=== PATIENT | female | born 1975 | race Caucasian/White ===

== ENCOUNTER → 2018-10-13 16:07 | Outpatient (CLI) | payer OTHER, SELFPAY ==
--- NOTE | 2018-10-13 | DI.CT.S_ITS ---
PROCEDURE: CT ABDOMEN PELVIS WO/W CON INDICATIONS: LEFT FLANK PAIN TECHNIQUE: Optional 5 mm thick noncontrast images acquired from the diaphragm to the symphysis pubis. After the administration of intravenous contrast, 5 mm thick images acquired from the diaphragm to the symphysis pubis after a 10-minute delay. 2 mm thick coronal and sagittal reformats were then performed of the kidneys and ureters. For radiation dose reduction, the following was used: automated exposure control, adjustment of mA and/or kV according to patient size. COMPARISON: None. FINDINGS: Image quality: Excellent. Lung bases: Lung bases are clear. Heart size is normal. Bilateral breast implants partially visualized, no evidence of implant rupture. Urinary system: Both kidneys are normal in size, without hydronephrosis or nephrolithiasis on pre-contrast images. No perinephric fat stranding. There is normal bilateral renal enhancement. Renal calyces appear normal in morphology when filled with contrast. Opacified portions of both ureters demonstrate normal caliber. Bladder wall thickness is normal. No calcified bladder stones. Other solid organs: Liver is normal in size and enhancement. Gallbladder appears normal. Biliary system is non dilated. Pancreas enhances normally. Spleen is normal in size and enhancement. No adrenal nodules. Peritoneum and bowel: Bowel loops demonstrate normal wall thickness and caliber. No free fluid or air. Nodes and vessels: No retroperitoneal or mesenteric adenopathy by size criteria. Aorta and inferior vena cava are normal in size. Abdominal wall: No ventral hernias. Pelvis: No pathologic free pelvic fluid. No inguinal hernias or adenopathy. The uterus is anteverted and contains a centrally positioned IUD. No left-sided adnexal pathology is seen. There is a water density 3.7 cm simple appearing cyst adjacent to a smaller cyst at the right adnexa. Bones: No suspicious bony lesions. No vertebral body compression fractures. IMPRESSION: A source of left-sided flank pain is not seen. No urinary tract stone or evidence of pyelonephritis or underlying neoplasm is found. Incidental note is made of 2 water density apparent cysts at the right adnexa, the largest measuring up to 3.7 cm in maximal axial dimension. Dictated by: Reinaldo Fritz M.D. on 10/14/2018 at 11:08 Approved by: Reinaldo Fritz M.D. on 10/14/2018 at 11:10
== END ==
PROVIDERS: Family Provider Family Medicine; PCP Family Medicine; Visit Provider Family Medicine
DX: R10.9 Unspecified abdominal pain (principal); N94.9 Unspecified condition associated with female genital organs and menstrual cycle
CPT/HCPCS: 74178; Q9967

== ENCOUNTER → 2019-04-10 10:39 | Outpatient (CLI) | payer BC, SELFPAY ==
--- NOTE | 2019-04-10 10:51 | DI.CT.S_ITS ---
PROCEDURE: CT SINUS SCREEN WO CON INDICATIONS: Chronic maxillary sinusitis TECHNIQUE: Noncontrast 3.0 mm axial images acquired from the frontal sinuses to the mid-sella, with coronal and sagittal reformats. For radiation dose reduction, the following was used: automated exposure control, adjustment of mA and/or kV according to patient size. COMPARISON: None. FINDINGS: Image quality: Excellent. Postsurgical changes compatible prior functional endoscopic sinus surgery noted. No mucosal thickening identified. No air-fluid levels are identified. No leidy bullosa or paradoxical turbinates. The nasal septum is midline. No osseous thickening, osseous remodeling or osseous erosive changes. IMPRESSION: No mucosal thickening or air-fluid levels. Dictated by: Sada Perdomo MD, PhD on 04/10/2019 at 11:38 Approved by: Sada Perdomo MD, PhD on 04/10/2019 at 11:40
== END ==
PROVIDERS: PCP Family Medicine; Visit Provider Family Medicine
DX: J32.0 Chronic maxillary sinusitis (principal)
CPT/HCPCS: 70486

== ENCOUNTER → 2019-09-04 11:19 | Outpatient (ROUT) | payer BC, SELFPAY ==
[2019-09-04 11:29] LABS: Influenza A and B by PCR Rapid Negative (Negative)
== END ==
PROVIDERS: PCP Family Medicine; Visit Provider Internal Medicine
DX: R53.81 Other malaise (principal); R52 Pain, unspecified; R50.9 Fever, unspecified
CPT/HCPCS: 87400; 87502

== ENCOUNTER → 2020-01-31 15:25 | Outpatient (CLI) | payer BC, SELFPAY ==
--- NOTE | 2020-01-31 15:34 | DI.RAD.S_ITS ---
PROCEDURE: XR CERVICAL SPINE 2V OR 3V INDICATIONS: NECK PAIN TECHNIQUE: 3 view(s) of the cervical spine were acquired. COMPARISON: None. FINDINGS: Bones: No fractures or dislocations to the T1 level. The lateral masses of C1 appear intact on the odontoid view. No suspicious bony lesions. Soft tissues: No prevertebral soft tissue swelling. IMPRESSION: Minimal degenerative disc disease along the cervical spine, as indicated by C5-C6 mild disc height reduction. No subluxation or definite spinal/foraminal stenosis is seen. Dictated by: Reinaldo Fritz M.D. on 01/31/2020 at 16:20 Approved by: Reinaldo Fritz M.D. on 01/31/2020 at 16:21
== END ==
PROVIDERS: PCP Family Medicine; Referring Provider Family Medicine; Visit Provider Family Medicine
DX: M54.2 Cervicalgia (principal)
CPT/HCPCS: 72040

== ENCOUNTER → 2021-08-04 11:23 | Outpatient (ROUT) | payer BC, SELFPAY ==
[2021-08-04 13:02] LABS: COVID19 -Nasal RAPID Negative (Negative)
== END ==
PROVIDERS: PCP Family Medicine; Visit Provider Nurse Practitioner Family
DX: Z20.822 Contact with and (suspected) exposure to COVID-19 (principal)
CPT/HCPCS: 87635

== ENCOUNTER 2021-11-07 09:41 | Emergency (ER) | payer BC, SELFPAY ==
[2021-11-07] VITALS (18 sets, daily range): BP systolic 114–150; BP diastolic 71–81; PULSE 65–91; RESP 12–31; TEMP 36.7; O2SAT 98–100; BMI 28.0
--- NOTE | 2021-11-07 10:15 | PC.NURSE ---
Patient was flying one week ago about 45min into flight became, hot, sweating, nauseated, ringing in years. Spouse reports she was out for couple of minutes. Had ssimilar episode on flight home two days ago, oxygen was administered immediatly and patient symptoms resolved. Patient had felt normal all week in between flights other than some frequent heart [place] feeling off yesterday some light headed, indigestion. Today woke feeling worse with neck pain/tension with headache. Patient has history of migraines and would normal attribute symptoms to that but in light of the syncope and near syncope on flight patient comes in to ER.
[2021-11-07 10:18] LABS: Add Manual Diff / Slide Review NO; Basophils Absolute Auto 100 /uL (0-100); Eosinophils Absolute Auto 100 /uL (0-450); Eosinophils Percent Auto 2.1 % (2-4); Hematocrit 39.4 % (36-46); Hemoglobin 13.3 g/dL (12.0-16.0); Lymphocytes Absolute Auto 2200 /uL (1100-4500); Lymphocytes Percent Auto 39.3 % (25-40); Mean Corpuscular HGB Conc 33.9 % (30-36); Mean Corpuscular Hemoglobin 32.1 PG (26-34); Mean Corpuscular Volume 94.7 fL (80-100); Monocytes Absolute Auto 500 /uL (0-900); Monocytes Percent Auto 8.8 % (3-14); Neutrophils Absolute Auto 2700 /uL (1500-7000); Neutrophils Percent Auto 48.8 % (50-75); Platelet Count 248 X10^3/uL (150-400); Red Blood Cell Count 4.16 X10^6/uL (4.0-5.2); Red Cell Distribution Width 12.9 % (11.6-14.8); White Blood Cell Count 5.5 X10^3/uL (4.5-11.0)
--- NOTE | 2021-11-07 10:29 | DI.CT.S_ITS ---
PROCEDURE: CT HEAD/BRAIN WO CON INDICATIONS: Syncope TECHNIQUE: Noncontrast 4.5 mm thick angled axial sections acquired from the foramen magnum to the vertex, with coronal and sagittal reformats. For radiation dose reduction, the following was used: automated exposure control, adjustment of mA and/or kV according to patient size. COMPARISON: [facility], CT, HEAD WITHOUT CONTRAST, 08/23/2008, 11:09. FINDINGS: Image quality: Excellent. CSF spaces: Basal cisterns are patent. No extra-axial fluid collections. Ventricles are normal in size and shape. Brain: No midline shift. No intracranial masses or hemorrhage. Khalil-white matter interface is normal. Skull and face: Calvarium and visualized facial bones are intact, without suspicious lesions. Sinuses: Visualized sinuses and mastoids are clear. IMPRESSION: Unremarkable noncontrast head CT, without a cause of syncope identified. Dictated by: Sarmad Zamora M.D. on 11/07/2021 at 9:57 Approved by: Sarmad Zamora M.D. on 11/07/2021 at 9:58
--- NOTE | 2021-11-07 10:32 | ED_ITS ---
HPI - Syncope General Chief Complaint: Syncope Stated Complaint: LIGHT HEADED/SYNCOPE ON PLANE/LOW BLOOD PRESSURE Time Seen by Provider: 11/07/21 10:01 Source: patient and family Mode of arrival: Ambulatory Limitations: no limitations History of Present Illness HPI narrative: 8 days ago the patient was on a flight from this area to [place]. She had a 4 minute episode of syncope while aboard the plane. Her described her eyes rolling back. He could not palpate a pulse. She became pale and diaphoretic. She spontaneously recovered, and was asymptomatic for the duration the flight. Once in [place] they took a couple connector flights with no symptoms. On the return flight 2 days ago, she developed near-syncope, she was given oxygen and symptoms resolved. She has been asymptomatic since that e pisode in flight. She does not recall palpitations, chest pain or dyspnea. She had no visual changes, change in speech, or numbness or weakness to the face or extremities. She denies recent illness. She has no URI symptoms . She has no fever chills. She has no current neurologic, cardiovascular, or GI symptoms. She denies . She has no prior history of syncope. This morning, before deciding to come to the ER, she was not feeling well. Her blood pressure was 90/70 at home. She is normotensive upon arrival here. Related Data Home Medications Medication Instructions Recorded Confirmed sumatriptan succinate 50 mg tablet 50 mg PO PRN #0 05/30/12 10/31/18 (Imitrex) levonorgestrel 20 mcg/24 hours (7 52 mg IU #0 09/12/12 10/31/18 yrs) 52 mg intrauterine device (Mirena) Previous Rx's Medication Instructions Recorded metoprolol tartrate 25 mg tablet 25 mg PO DAILY #30 tab 11/07/21 Allergies Allergy/AdvReac Type Severity Reaction Status Date / Time Sulfa (Sulfonamide Allergy Intermediate HIVES Unverified 10/31/18 10:08 Antibiotics) minocycline AdvReac Mild VERTIGO, Unverified 10/31/18 10:08 NAUSEA Review of Systems Constitutional Constitutional: Reports as per HPI, Denies fatigue, Denies fever(s) and Reports headache(s) (Cervical headache.) Eyes Eyes: Denies blind spots, Denies blurry vision and Denies loss of vision ENT Ears, Nose, Mouth, and Throat: Reports headache(s) (Cervical headache.), Reports neck pain, Denies sinus pain and Denies sore throat Cardiovascular Cardiovascular: Denies chest pain, Denies chest pain with activity, Reports syncope, Denies rapid heart rate and Denies dyspnea Respiratory Respiratory: Denies cough and Denies dyspnea Gastrointestinal Gastrointestinal: Denies abdominal pain and Denies nausea Musculoskeletal Musculoskeletal: Denies back pain, Denies muscle weakness, Denies myalgias, Reports neck pain, Denies numbness, Denies stiffness and Denies tingling Integumentary/Breasts Skin/Breast: Denies rash Neurologic Neurologic: Denies confusion, Reports syncope, Reports headache(s) (Cervical he adache.), Denies loss of vision, Denies numbness and Denies tingling Psychiatric Psychiatric: Denies confusion and Denies depression Endocrine Endocrine: Denies fatigue Hematologic/Lymphatic On Anticoagulants: No Patient History Medical History (Updated 11/07/21 @ 15:49 by Aroldo Garnett MD) Healthy adult Surgical History Anesthesia History of breast augmentation History of endoscopic sinus surgery History of knee surgery History of repair of ACL Status post bunionectomy Social History Smoking Status: Never smoker Smoking Status: Never smoker alcohol intake frequency: 0-2 drinks per day Substance Use Type: does not use Exam Initial Vital Signs Initial Vital Signs: Vital Signs Temperature 98.1 F 11/07/21 09:45 Pulse Rate 78 11/07/21 09:45 Respiratory Rate 18 11/07/21 09:45 Blood Pressure 150/71 H 11/07/21 09:45 Pulse Oximetry 99 11/07/21 09:45 Const General: cooperative, healthy appearing and comfortable [facility] Head: normocephalic and atraumatic Mouth: oral mucosae normal Eyes Pupils: PERRL EOM: EOM intact bilaterally Neck Neck: normal visual inspection and No JVD Thyroid: thyroid normal Resp Auscultation: clear to auscultation bilaterally Cardio Rate: regular rate Rhythm: regular rhythm Heart Sounds: S1 normal, S2 normal, no click, no gallops and no murmurs GI Inspection: normal to inspection Palpation: soft and No guarding Auscultation: normal bowel sounds Back/Spine/Pelvis Back: normal to inspection Skin General: no rashes or lesions noted Neuro General: patient alert, patient awake, patient oriented x3 and no focal motor deficits Extrem General: normal to inspection, no pedal edema and no calf tenderness Psych Mental Status: mental status grossly normal Course Course Course Narrative: During his stay in the ER she developed palpitations. She did not feel near- syncope. She had no chest pain, dyspnea or diaphoresis. Cardiac monitoring captured a brief run of AFib. Over the past 8 days she has had a syncopal episode, a near syncopal episode, and a period of hypotension this morning at home. The case was discussed with her PCM, Dr. Gardner and Cardiology, Dr. Howard. I have started the patient on aspirin and metoprolol. Dr. Howard is making arrangements to see her Wednesday in clinic. She needs echo and long-term cardiac monitoring. Her cervical headache was relieved with Toradol. I do not think the headache has any association with the syncope nor the discovery of PAF. Orders Ordered: ED Orders 11/07/21 09:54 EKG-12 Lead Stat 11/07/21 10:10 Complete Blood Count AUTO DIFF Stat Comprehensive Metabolic Panel Stat Lipase Stat Magnesium Stat Troponin & CK Cardiac Panel Stat 11/07/21 10:29 CT head/brain wo con Stat Discontinued Medications Aspirin (Aspirin 81 Mg Chew Tab) 324 mg PO NOW ONE Stop: 11/07/21 14:30 Last Admin: 11/07/21 14:35 Dose: 324 mg Documented by: SHAN Ketorolac Tromethamine (Ketorolac 30 Mg/Ml Vial) 15 mg IV NOW ONE Stop: 11/07/21 13:03 Last Admin: 11/07/21 13:27 Dose: 15 mg Documented by: SHAN Metoprolol Tartrate (Metoprolol Ir 25 Mg Tablet) 25 mg PO NOW ONE Stop: 11/07/21 14:26 Last Admin: 11/07/21 14:30 Dose: 25 mg Documented by: SHAN Vital Signs Vital signs: Vital Signs - 8 hr 11/07/21 09:45 11/07/21 09:52 11/07/21 10:00 Temperature 98.1 F Pulse Rate 78 83 75 Respiratory Rate 18 15 24 Blood Pressure 150/71 H 122/81 Pulse Oximetry 99 100 100 11/07/21 10:15 11/07/21 10:30 11/07/21 11:00 Temperature Pulse Rate 68 65 78 Respiratory Rate 17 14 22 Blood Pressure 122/80 Pulse Oximetry 100 100 100 11/07/21 11:30 11/07/21 12:00 11/07/21 12:30 Temperature Pulse Rate 75 65 79 Respiratory Rate 19 14 14 Blood Pressure 136/72 Pulse Oximetry 99 99 98 11/07/21 13:00 11/07/21 13:30 11/07/21 14:00 Temperature Pulse Rate 77 67 71 Respiratory Rate 21 31 H 16 Blood Pressure Pulse Oximetry 99 99 99 11/07/21 14:30 11/07/21 14:31 11/07/21 14:32 Temperature Pulse Rate 91 H 90 87 Respiratory Rate 25 H 31 H Blood Pressure 125/76 Pulse Oximetry 100 100 100 11/07/21 15:00 Temperature Pulse Rate 71 Respiratory Rate 18 Blood Pressure Pulse Oximetry 100 MDM - Syncope Lab Data Result diagrams: 11/07/21 10:10 11/07/21 10:10 Labs: Lab Results 11/07/21 11/07/21 Range/Units 10:10 10:10 WBC 5.5 (4.5-11.0) X10^3/uL RBC 4.16 (4.0-5.2) X10^6/uL Hgb 13.3 (12.0-16.0) g/dL Hct 39.4 (36-46) % MCV 94.7 (80-100) fL MCH 32.1 (26-34) PG MCHC 33.9 (30-36) % RDW 12.9 (11.6-14.8) % Plt Count 248 (150-400) X10^3/uL Neut % (Auto) 48.8 L (50-75) % Lymph % (Auto) 39.3 (25-40) % [place] % (Auto) 8.8 (3-14) % Eos % (Auto) 2.1 (2-4) % Baso % (Auto) 1.0 (0-2) % Neut # (Auto) 2700 (1357-3152) /uL Lymph # (Auto) 2200 (4941-4324) /uL [place] # (Auto) 500 (0-900) /uL Eos # (Auto) 100 (0-450) /uL Baso # (Auto) 100 (0-100) /uL Sodium 140 (137-145) mmol/L Potassium 3.9 (3.4-5.1) mmol/L Chloride 102 (98-107) mmol/L Carbon Dioxide 28 (22-32) mmol/L BUN 12 (7-17) mg/dL Creatinine 0.93 (0.52-1.04) mg/dL Estimated GFR > 60.0 (>60) mL/min BUN/Creatinine Ratio 12.9 (6-22) Glucose 66 L (70-100) mg/dL Calcium 9.8 (8.4-10.2) mg/dL Magnesium 2.2 (1.6-2.3) mg/dL Total Bilirubin 0.5 (0.2-1.3) mg/dL AST 23 (14-36) IU/L ALT 13 (<35) IU/L Alkaline Phosphatase 69 (38-126) U/L Total Creatine Kinase 70 (30-135) U/L CK-MB (CK-2) TNP CK-MB (CK-2) Rel Index TNP Troponin I < 0.012 (0.01-0.034) ng/mL Total Protein 8.2 (6.3-8.2) g/dL Albumin 4.9 (3.5-5.0) g/dL Globulin 3.3 (1.7-4.1) g/dL Albumin/Globulin Ratio 1.5 (1.0-2.8) Lipase 116 (23-300) U/L Point of Care Testing Glucose POC 89 Urine Dip Bedside Urine Glucose Negative Bedside Urine Bilirubin - Negative Bedside Urine Ketone - Negative Urine Specific [place] 1.010 Bedside Urine Occult Blood - Negative Bedside Urine pH 6.0 Bedside Urine Protein - Negative Bedside Urine Urobilinogen 0.2 Bedside Urine Nitrite - Negative Bedside Urine Leukocytes - Negative Esterase Imaging Data CT scan - head: Radiologist's Impression: No acute findings ECG Data Attestation: I personally reviewed and interpreted this ECG as follows: ( normal sinus rhythm rate 73 beats per minute. Normal intervals. No ectopy. No acute ST T wave changes.) Discharge Plan Departure Patient Disposition: Home Clinical Impression: Paroxysmal A-fib, Syncope Activity Restrictions/Additional Instructions: Baby aspirin 1 daily. Metoprolol 25 mg daily. The prescription has been forwarded to [facility] in [place], [place]. Follow-up with Dr. Howard 1045 Wednesday11/10/2021. If you have difficulty making the Cardiology medical assistant dermatology, contact her PCM. You need an echocardiogram and cardiac monitoring arranged. The symptoms recur, return here, call [phone] if necessary. Prescriptions: New metoprolol tartrate 25 mg tablet 25 mg PO DAILY Qty: 30 0RF No Action sumatriptan succinate [Imitrex] 50 MG tablet 50 mg PO PRN Qty: 0 0RF levonorgestrel [Mirena] 1 EACH intrauterine device 52 mg IU Qty: 0 0RF Referrals: Lakeisha Howard MD [Physician] - Aroldo Gardner MD [Primary Care Provider] -
[2021-11-07 11:13] LABS: Alanine Aminotransferase 13 IU/L (<35); Albumin 4.9 g/dL (3.5-5.0); Albumin Globulin Ratio 1.5 (1.0-2.8); Alkaline Phosphatase 69 U/L (38-126); Aspartate Aminotransferase 23 IU/L (14-36); BUN Creatinine Ratio 12.9 (6-22); Bilirubin Total 0.5 mg/dL (0.2-1.3); Blood Urea Nitrogen 12 mg/dL (7-17); Calcium 9.8 mg/dL (8.4-10.2); Carbon Dioxide 28 mmol/L (22-32); Chloride 102 mmol/L (98-107); Creatine Kinase 70 U/L (30-135); Estimated Glomerular Filt Rate > 60.0 mL/min (>60); Globulin 3.3 g/dL (1.7-4.1); Glucose 66 mg/dL (70-100); HEMOLYSIS < 15 (0-50); Lipase 116 U/L (23-300); Magnesium 2.2 mg/dL (1.6-2.3); Potassium 3.9 mmol/L (3.4-5.1); Sodium 140 mmol/L (137-145); Total Protein 8.2 g/dL (6.3-8.2)
[2021-11-07 11:24] LABS: Troponin I < 0.012 ng/mL (0.01-0.034)
[2021-11-07] MEDS: KETOROLAC 30 MG/ML VIAL 15 MG IV (13:27)
[2021-11-07] MEDS: METOPROLOL IR 25 MG TABLET PO (14:30)
[2021-11-07] MEDS: ASPIRIN 81 MG CHEW TAB 324 MG PO (14:35)
== END 2021-11-07 16:11 | disposition home or self-care (01) ==
PROVIDERS: Emergency Provider Emergency Medicine; PCP Family Medicine
DX: I48.0 Paroxysmal atrial fibrillation (principal); R55 Syncope and collapse
CPT/HCPCS: 36415; 70450; 80053; 81003; 82550; 82962; 83690; 83735; 84484; 85025; 93005; 93010; 96374; 99284; J1885

== ENCOUNTER → 2021-11-13 07:46 | Outpatient (CLI) | payer BC, SELFPAY ==
--- NOTE | 2021-11-13 | DI.ECHO.S_ITS ---
[place] [facility]---------+ [facility] +---------+ : : [address] : : : : [id number] : : : : Phone: [phone] Echocardiogram Report + + :Name: DANGELO PRETTY Study Date: 11/13/2021 Height: 65.5 in: :[facility] ReadingLocation: Weight: 145 lb : : Gender: Female BSA: 1.7 m2 : :: 1975 Age: 46 yrs BP: 112/83 mmHg: :Reason For Study: Syncope and collapse : :Ordering Physician: : :KLAUS Performed By: Marlon Alves : :Referring: THEO HOWARD : + + Interpretation Summary 1) Normal left ventricular size, thickness, and systolic function (EF 55-60%). 2) There are no obvious focal wall motion abnormalities noted but poor endocardial definition reduces the sensitivity for the detection of such. 3) The right ventricle is normal in size and function. 4) No significant valvular abnormalities. 5) No prior Echo available for comparison. Procedure: A two-dimensional transthoracic echocardiogram with color flow and Doppler was performed. The study quality was technically adequate. There is no prior echocardiogram noted for this patient. Technically difficult apical window due to breast implants. No true 2 chamber view. The patient was in normal sinus rhythm during the exam. Left Ventricle: The left ventricle is normal in size and wall thickness. The ejection fraction is estimated to be 55-60%. There are no obvious focal wall motion abnormalities noted but poor endocardial definition reduces the sensitivity for the detection of such. Right Ventricle: The right ventricle is normal in size and function. Atria: The left atrium grossly appears normal in size. The right atrium is borderline dilated. There is no Doppler evidence for an interatrial shunt. Mitral Valve: The mitral valve leaflets appear borderline thickened, but open well. There is trace mitral regurgitation. Aortic Valve: The aortic valve is trileaflet. The aortic valve opens well. There is no aortic valve stenosis. There is trace aortic regurgitation. Tricuspid Valve: The tricuspid valve is normal. There is a trace or physiologic amount of tricuspid regurgitation. Pulmonary artery pressures cannot be estimated because of the lack of a measurable TR jet velocity but the IVC suggests a CVP of around 3 mmHg. Pulmonic Valve: The pulmonic valve is normal in structure and function. Great Vessels: The aortic root is normal size. The ascending aorta is normal in size. The aortic arch is normal in size. The IVC is of normal diameter and collapses greater than 50% with a sniff. This suggests a low right atrial pressure of 3 mm Hg. Pericardium/ Pleura There is no pericardial effusion. There is an anterior echo-free space consistent with a fat pad. There is no pleural effusion. MMode/2D Measurements & Calculations LVIDd: 4.3 cm LVOT diam: 1.9 cm LVIDs: 2.7 cm Ao root diam: 2.4 cm FS: 37.2 % asc Aorta Diam: 2.6 cm IVSd: 0.80 cm Ao Arch Diam (Prox Trans): 1.9 cm LVPWd: 0.90 cm LV lizarraga. diameter/BSA (cm/m^2): 2.5 LV sys. diameter/BSA (cm/m^2): 1.6 LA A4 area: 15.6 cm2 RA long axis: 4.6 cm IVC diam: 1.4 cm LVLs ap4: 5.2 cm TAPSE_phl: 2.5 cm Doppler Measurements & Calculations Ao V2 max: 129.0 cm/sec LVOT Max Antony: 86.5 cm/sec Ao V2 mean: 89.8 cm/sec LV V1 max P.0 mmHg Ao max P.0 mmHg LV V1 VTI: 18.2 cm Ao mean P.0 mmHg EDGAR(I,D): 1.8 cm2 Ao V2 VTI: 28.0 cm EDGAR(V,D): 1.9 cm2 sev ratio: 0.65 EDGAR indexed to BSA (cm^2/m^2): 1.0 MV E max antony: 87.3 cm/sec PA V2 max: 88.7 cm/sec MV A max antony: 82.0 cm/sec PA V2 mean: 66.0 cm/sec MV E/A: 1.1 PA mean P.0 mmHg Med Peak E' Antony: 10.8 cm/sec PA pr(Accel): 11.0 mmHg E/E' med: 8.1 Lat Peak E' Antony: 11.1 cm/sec E/E' lat: 7.9 E/e' average: 8.0 MV dec time: 0.26 sec SV(LVOT): 50.7 ml AV VR_phl: 0.67 EDGAR(VTI)/BSA_phl: 0.85 MV P1/2t-pr_phl: 75.0 msec Reading Physician:10:03 AM
== END ==
PROVIDERS: PCP Family Medicine; Referring Provider Internal Medicine Cardiovascular Disease; Visit Provider Internal Medicine Cardiovascular Disease
DX: R55 Syncope and collapse (principal)
CPT/HCPCS: 93306

== ENCOUNTER → 2021-11-21 08:41 | Outpatient (CLI) | payer OTHER, SELFPAY ==
--- NOTE | 2021-11-21 | DI.MRI.S_ITS ---
PROCEDURE: MR HEAD/BRAIN WO CON INDICATIONS: Headache, unspecified TECHNIQUE: Noncontrast axial T1 spin echo, axial T2 fast spin echo, sagittal and axial FLAIR, coronal T2 fast spin echo, axial gradient echo, axial diffusion and ADC through the brain. COMPARISON: None. FINDINGS: Image quality: Excellent. CSF Spaces: Basal cisterns are patent. No extra-axial fluid collections. Ventricles are normal in size and shape. Brain: Subcortical and periventricular foci T2/FLAIR signal are present with a focus in the right frontal subcortical white matter in the vertex, a punctate focus in the right centrum semiovale, and 2 subcentimeter foci in the right periventricular parietal lobe adjacent to the right occipital horn. No intracranial masses or hemorrhage. Khalil/white matter interface is normal. Brainstem appears normal. Diffusion-weighted images demonstrate no acute ischemic insult. No chronic ischemic insults. Normal intravascular flow voids are present. Skull and face: Calvarium has normal marrow signal. Orbits appear normal. Sinuses: Sinuses and mastoids are clear. IMPRESSION: 1. No acute intracranial abnormality. No acute ischemia. 2. Punctate foci of subcortical and periventricular T2/FLAIR. This is nonspecific but can be seen as sequela from migraine headaches, early demyelinating disease, or microvascular ischemic disease. Dictated by: Dionicio Self M.D. on 11/21/2021 at 9:51 Approved by: Dionicio Self M.D. on 11/21/2021 at 9:58
== END ==
PROVIDERS: PCP Family Medicine; Referring Provider Internal Medicine; Visit Provider Internal Medicine
DX: R51.9 Headache, unspecified (principal); R55 Syncope and collapse
CPT/HCPCS: 70551

== ENCOUNTER → 2021-12-18 12:35 | Outpatient (CLI) | payer OTHER, SELFPAY ==
--- NOTE | 2021-12-18 12:35 | DI.US.S_ITS ---
PROCEDURE: US ABDOMEN COMPLETE INDICATIONS: PAIN TECHNIQUE: Real-time scanning was performed of the abdominal and retroperitoneal organs, with image documentation. COMPARISON: [facility], CT, CT ABDOMEN HEPATIC/ADRENAL PROTOCOL, 11/14/2021, 17:54. FINDINGS: Liver: Liver is normal in size and homogeneous in echotexture. Gallbladder: No gallbladder wall thickening, pericholecystic fluid, or shadowing gallstones. Biliary ducts: Intrahepatic bile ducts are non-dilated. Extrahepatic bile duct caliber measures 3.6 mm. Normal is 6-7 mm or less in diameter, or 10 mm or less post-cholecystectomy. Pancreas: Visualized portions of the pancreas are sonographically normal. Spleen: Spleen is normal in size and homogeneous in echotexture. Kidneys: Kidneys are normal in size and echotexture. Right kidney measures 10.2 cm long; left kidney measures 10.7 cm long. No nephrolithiasis or solid mass. Mild trace right pelviectasis. Aorta: Visualized aorta is normal in caliber at less than 3 cm. Iliacs: Proximal common iliac arteries are normal in caliber at less than 2.5 cm. IVC: Intrahepatic inferior vena cava is patent. Miscellaneous: No free abdominal fluid. IMPRESSION: No significant abnormality. Dictated by: Santiago Sherman M.D. on 12/18/2021 at 13:52 Approved by: Santiago Sherman M.D. on 12/18/2021 at 13:55
== END ==
PROVIDERS: PCP Family Medicine; Referring Provider Family Medicine; Visit Provider Family Medicine
DX: R10.9 Unspecified abdominal pain (principal)
CPT/HCPCS: 76700

== ENCOUNTER → 2021-12-26 07:40 | Outpatient (CLI) | payer OTHER, SELFPAY ==
--- NOTE | 2021-12-26 | DI.NM.S_ITS ---
PROCEDURE: NM HIDA WITH CCK PHARMACEUTICAL: 5.2 mCi Tc-99m mebrofenin IV; 1.3 mcg CCK IV. INDICATIONS: Unspecified abdominal pain TECHNIQUE: Following intravenous administration of Tc-99m mebrofenin, sequential anterior abdominal images were obtained. To evaluate the contractile response of the gallbladder in response to Cholecystokinin (CCK), sincalide (0.02 ?g/kg) was administered by slow intravenous infusion approximately 60 minutes after the administration of the radiopharmaceutical. Sequential imaging was continued for 30 minutes after the start of CCK infusion. Gallbladder ejection fraction was calculated. COMPARISON: None. FINDINGS: Biliary scan: There is normal tracer uptake and excretion by the liver. There is normal visualization of the intrahepatic ducts, common bile duct, and gallbladder. There is normal tracer transit into the duodenum. CCK stimulation: There is normal contractile response of the gallbladder to CCK infusion. The calculated gallbladder ejection fraction is 59% ; normal values are above 35%. It has been shown that any patient abdominal pain after CCK administration is related to the rate of CCK injection, rather than to any underlying gallbladder disease (Clinical Nuclear Medicine 2012; 37: 63-70. Journal of Nuclear Medicine 2014; 55: 1-9). IMPRESSION: Normal hepatobiliary uptake and scan. Normal gallbladder ejection fraction. Dictated by: Mario Alvarenga M.D. on 12/26/2021 at 9:57 Approved by: Mario Alvarenga M.D. on 12/26/2021 at 9:58
== END ==
PROVIDERS: PCP Family Medicine; Referring Provider Family Medicine; Visit Provider Family Medicine
DX: R10.9 Unspecified abdominal pain (principal)
CPT/HCPCS: 78227; A9537; J2805

== ENCOUNTER → 2022-02-13 09:18 | Outpatient (CLI) | payer OTHER, SELFPAY ==
[2022-02-13 09:52] LABS: Appearance Urine UA CLEAR; Bilirubin Urine UA NEGATIVE (NEGATIVE); Color Urine UA YELLOW; Glucose Urine UA NEGATIVE (Negative); Ketones Urine UA NEGATIVE (NEGATIVE); Leukocyte Esterase Urine UA NEGATIVE (NEGATIVE); Nitrite Urine UA NEGATIVE (Negative); Occult Blood Urine UA NEGATIVE (Negative); Protein Urine UA NEGATIVE (Negative); Specific Gravity Urine UA <=1.005 (1.000-1.035); Urobilinogen Urine UA 0.2 E.U./dL (0.2)
[2022-02-13 10:05] LABS: pH Urine UA 6.5 (4.5-8.0)
[2022-02-13 10:06] LABS: Bacteria Urine None Seen; Culture Indicated Urine Cult Not Indicated; RBC Urine None Seen (0-5/HPF); Urine Comments Microscopic Normal; WBC Urine None Seen (0-5/HPF)
== END ==
PROVIDERS: PCP Family Medicine; Referring Provider Physician Assistant; Visit Provider Physician Assistant
DX: R10.84 Generalized abdominal pain (principal)
CPT/HCPCS: 81001; 84110

== ENCOUNTER → 2022-02-24 14:22 | Outpatient (CLI) | payer OTHER, SELFPAY ==
--- NOTE | 2022-02-24 | DI.MG.S_ITS ---
BILATERAL DIGITAL SCREENING MAMMOGRAM 3D/2D WITH CAD WITH AUGMENTATION: 02/24/2022 CLINICAL: Routine screening. Baseline exam. No prior exams were available for comparison. The tissue of both breasts is heterogeneously dense. This may lower the sensitivity of mammography. Current study was also evaluated with a Computer Aided Detection (CAD) system. Bilateral breast implants are intact. No significant masses, calcifications, or other findings are seen in either breast. IMPRESSION: NEGATIVE There is no mammographic evidence of malignancy. A 1 year screening mammogram is recommended. This exam was interpreted at Station ID: [id number]. NOTE: For mammograms, a report in lay terms will be sent to the patient. Approximately 15% of breast malignancies will not be visualized mammographically. In the management of a palpable breast mass, a negative mammogram must not discourage biopsy of a clinically suspicious lesion. Electronically Signed By: Graham hernandez/ace:02/24/2022 16:48:28 letter sent: Normal Exam ACR BI-RADS Category 1: Negative [id number]
== END ==
PROVIDERS: PCP Family Medicine; Referring Provider Family Medicine; Visit Provider Family Medicine
DX: Z12.31 Encounter for screening mammogram for malignant neoplasm of breast (principal)
CPT/HCPCS: 77063; 77067

== ENCOUNTER → 2022-03-03 07:43 | Outpatient (CLI) | payer OTHER, SELFPAY ==
--- NOTE | 2022-03-03 | DI.MRI.S_ITS ---
PROCEDURE: MR THORACIC SPINE WO CON INDICATIONS: Dorsalgia, unspecified TECHNIQUE: Noncontrast sagittal T1 spine echo and T2 fast spin echo, sagittal STIR, axial T1 and T2 fast spin echo through the thoracic spine. COMPARISON: None. FINDINGS: Image quality: Excellent. Alignment and Curvature: There is normal bony alignment. Bone Marrow: Marrow is of normal overall signal. No acute vertebral body compression fractures. A 1 centimeter sclerotic foci within the T8 vertebral body is seen. The T1 vertebral body has a 1 centimeter hemangioma. C5-6 is partially visualized and demonstrates a diffuse disc bulge. Spinal Cord: Visualized spinal cord is normal in size and signal. Paraspinous Soft Tissues: No paravertebral masses. Miscellaneous: On axial images, central canal and foramina appear widely patent at all scanned levels. IMPRESSION: 1. No significant disc disease or abnormality of the thoracic spine. 2. Diffuse disc bulge of C5-6 is partially visualized. Dictated by: Dionicio Self M.D. on 03/03/2022 at 9:06 Approved by: Dionicio Self M.D. on 03/03/2022 at 9:19
== END ==
PROVIDERS: PCP Family Medicine; Referring Provider Family Medicine; Visit Provider Family Medicine
DX: M50.222 Other cervical disc displacement at C5-C6 level (principal); M54.9 Dorsalgia, unspecified
CPT/HCPCS: 72146

== ENCOUNTER → 2022-03-13 17:41 | Outpatient (CLI) | payer OTHER, SELFPAY ==
--- NOTE | 2022-03-13 17:43 | DI.MRI.S_ITS ---
PROCEDURE: MR CERVICAL SPINE WO CON INDICATIONS: Pain TECHNIQUE: Noncontrast sagittal T1 spin echo and T2 fast spin echo, sagittal STIR, foraminal oblique sagittal T2 fast spin echo, and axial gradient echo or T2 fast spin echo through the cervical spine. COMPARISON: None. FINDINGS: Image quality: Excellent. Alignment and Curvature: There is normal bony alignment. Bone Marrow: Marrow demonstrates normal overall signal. Spinal Cord: Visualized spinal cord has normal size and signal. No cerebellar tonsillar herniation. Paraspinous Soft Tissues: No paravertebral masses. Prevertebral soft tissues are normal in thickness. C2-C3: Normal appearance. C3-C4: Normal appearance. C4-C5: Normal appearance. C5-C6: Mild disc space narrowing hypertrophic right uncovertebral joint. Minimal posterior disc osteophyte complex. No central stenosis. Mild right foraminal stenosis. No left foraminal stenosis. C6-C7: Normal appearance. C7-T1: Normal appearance. IMPRESSION: Trace degenerative disc disease and arthropathy at C5-6 results in mild right foraminal stenosis Approved by: Joseph Rueda M.D. on 03/14/2022 at 23:21
== END ==
PROVIDERS: PCP Family Medicine; Referring Provider Family Medicine; Visit Provider Family Medicine
DX: M48.02 Spinal stenosis, cervical region (principal)
CPT/HCPCS: 72141

== ENCOUNTER → 2022-10-06 10:02 | Outpatient (CLI) | payer OTHER, SELFPAY ==
--- NOTE | 2022-10-06 10:04 | DI.RAD.S_ITS ---
PROCEDURE: XR THORACIC SPINE 2V INDICATIONS: RIB PAIN TECHNIQUE: 2 views of the thoracic spine were acquired. COMPARISON: Merged With [facility], CT, CT ANGIO CHEST PE, 11/09/2021, 18:52. [facility], MR, MR THORACIC SPINE WO CON, 03/03/2022, 7:53. [facility], CR, XR CERVICAL SPINE 4V OR 5V, 10/06/2022, 10:29. FINDINGS: Bones: No fractures or dislocations. No suspicious bony lesions. A T8 bone island is again seen. 12 pairs of ribs are noted, and appear intact where visualized. Mild S-shaped scoliotic curvature is seen. Soft tissues: No paravertebral stripe thickening. IMPRESSION: A cause of rib pain is not seen. Mild S-shaped scoliotic curvature is seen. T8 bone island again incidentally noted. Dictated by: Sarmad Zamora M.D. on 10/06/2022 at 10:05 Approved by: Sarmad Zamora M.D. on 10/06/2022 at 10:07
--- NOTE | 2022-10-06 10:04 | DI.RAD.S_ITS ---
PROCEDURE: XR CERVICAL SPINE 4V OR 5V INDICATIONS: NECK PAIN TECHNIQUE: 5 total views of the cervical spine were acquired, including bilateral oblique views. COMPARISON: [facility], CR, XR THORACIC SPINE 2V, 10/06/2022, 10:29. [facility], MR, MR CERVICAL SPINE WO CON, 03/13/2022, 17:47. [facility], CR, XR CERVICAL SPINE 2V OR 3V, 01/31/2020, 15:29. FINDINGS: This study is limited by nonstandard positioning on the cervical oblique images. Bones: No fractures or dislocations to the T1 level. Oblique images demonstrate no bony foraminal stenoses. There is overall straightening of the normal cervical lordosis. Moderate disc space narrowing is seen at C5-C6. On oblique images, there is [id number] neural foraminal narrowing within cervical spine on both sides, yet the neural foraminal are seen. Soft tissues: No prevertebral soft tissue swelling. The visualized lung apices are unremarkable. IMPRESSION: Limited study demonstrating focal C5-C6 degenerative change. Straightening of the normal cervical lordosis is seen, which is commonly observed in patients with muscular spasm. Dictated by: Sarmad Zamora M.D. on 10/06/2022 at 10:07 Approved by: Sarmad Zamora M.D. on 10/06/2022 at 10:09
== END ==
PROVIDERS: PCP Family Medicine; Referring Provider Physical Medicine & Rehabilitation; Visit Provider Physical Medicine & Rehabilitation
DX: M47.812 Spondylosis without myelopathy or radiculopathy, cervical region (principal); R07.81 Pleurodynia; M41.9 Scoliosis, unspecified
CPT/HCPCS: 72050; 72070

== ENCOUNTER → 2022-10-21 11:03 | Outpatient (CLI) | payer OTHER, SELFPAY ==
--- NOTE | 2022-10-21 | DI.MRI.S_ITS ---
PROCEDURE: MR FOOT RT WO CON INDICATIONS: Stress fracture, right foot, initial encounter for fracture TECHNIQUE: Noncontrast sagittal T1 spin echo and T2 fast spin echo with fat saturation, long-axis T1 spin echo and STIR, short-axis T1 spin echo and T2 fast spin echo with fat saturation through the forefoot. COMPARISON: [facility], CR, XR FOOT 3 VIEWS WEIGHT BEARING RIGHT, 10/15/2022, 9:20. FINDINGS: Image quality: Excellent. Bones and joints: Postsurgical changes are seen from 1st metatarsal realignment osteotomy with 2 metallic screws. There is associated metal artifact. However, no associated osseous edema is seen. No bone marrow contusions or metatarsal stress fractures. The sesamoid bones appear in expected positions, without internal edema. Mild degenerative changes at the 1st metatarsophalangeal joint. No intraosseous lesions. Soft tissues: The visualized plantar foot muscles demonstrate normal signal and bulk. Visualized flexor and extensor tendons appear intact, without tenosynovitis. The distal insertions of the peroneus brevis and longus tendons appear intact. The principal Lisfranc ligament appears intact. No soft tissue ganglion cysts or bursal fluid collections. Sagittal images demonstrate no evidence for plantar plate tears. IMPRESSION: 1. No focal osseous edema is seen to suggest stress fracture or acute stress reaction. 2. Postsurgical changes at the distal 1st metatarsal with associated metal artifact. 3. 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 Approved by: Constantine Pulido M.D. on 10/21/2022 at 16:10
== END ==
PROVIDERS: PCP Family Medicine; Referring Provider Orthopaedic Surgery Foot and Ankle Surgery; Visit Provider Orthopaedic Surgery Foot and Ankle Surgery
DX: M84.374A Stress fracture, right foot, initial encounter for fracture (principal); M19.071 Primary osteoarthritis, right ankle and foot
CPT/HCPCS: 73718

== ENCOUNTER → 2022-10-28 10:30 | Outpatient (CLI) | payer OTHER, SELFPAY ==
[2022-10-28 12:12] LABS: Vitamin D 25 Hydroxy (D3) 34.2 ng/mL (30.0-100.0)
== END ==
PROVIDERS: PCP Family Medicine; Referring Provider Orthopaedic Surgery Foot and Ankle Surgery; Visit Provider Orthopaedic Surgery Foot and Ankle Surgery
DX: E55.9 Vitamin D deficiency, unspecified (principal)
CPT/HCPCS: 36415; 82306

== ENCOUNTER → 2022-11-10 08:17 | Outpatient (CLI) | payer OTHER, SELFPAY ==
--- NOTE | 2022-11-10 08:18 | DI.MRI.S_ITS ---
PROCEDURE: MR ANGIO HEAD WO CON INDICATIONS: Episodic Cranial Zoster w/ History of Remote Head Trauma TECHNIQUE: Noncontrast axial 3-D [id number] MR angiogram, with 3-dimensional maximum intensity projection (MIP) reformats of the internal carotid arteries and posterior circulation then performed. COMPARISON: None. FINDINGS: Image quality: Excellent. Anterior circulation: Intracranial internal carotid arteries demonstrate normal size and intraluminal flow signal. The flow within the paired anterior cerebral arteries is normal and symmetric. The flow within the middle cerebral arteries is normal and symmetric. The anterior communicating artery is seen. No stenoses, occlusions, or aneurysms. Posterior circulation: Visualized portions of the vertebral arteries demonstrate normal caliber, and join to form a normal appearing basilar artery. The flow within the posterior cerebral arteries is normal and symmetric. No stenoses, occlusions, or aneurysms. IMPRESSION: Negative cerebral MR angiography. Dictated by: Gabrielle De La Cruz M.D. on 11/10/2022 at 8:49 Approved by: Gabrielle De La Cruz M.D. on 11/10/2022 at 8:49
== END ==
PROVIDERS: PCP Family Medicine; Referring Provider Physical Medicine & Rehabilitation; Visit Provider Physical Medicine & Rehabilitation
DX: G52.9 Cranial nerve disorder, unspecified; R51.9 Headache, unspecified; B01.89 Other varicella complications; G59 Mononeuropathy in diseases classified elsewhere; Z87.828 Personal history of other (healed) physical injury and trauma
CPT/HCPCS: 70544

== ENCOUNTER 2023-01-14 08:41 | Outpatient (CLI) | payer OTHER, SELFPAY ==
[2023-01-14] VITALS (8 sets, daily range): BP systolic 118–134; BP diastolic 77–92; PULSE 79–109; RESP 12–18; TEMP 36.4; O2SAT 97–100
--- NOTE | 2023-01-14 08:42 | DI.RAD.S_ITS ---
PROCEDURE: PAIN C/T INTERLAMINAR INJECT INDICATIONS: SPINAL STENOSIS COMPARISON: [facility], CR, XR CERVICAL SPINE 4V OR 5V, 10/06/2022, 10:29. FINDINGS: Fluoroscopic spot filming was performed to verify placement of a spinal needle at the C6-C7 level, as labeled on the films. Appropriate location of the needle tip was confirmed by injection of iodinated contrast. IMPRESSION: No significant intraprocedural abnormality. Dictated by: Sarmad Zamora M.D. on 01/14/2023 at 10:16 Approved by: Sarmad Zamora M.D. on 01/14/2023 at 10:16
[2023-01-14] MEDS: MIDAZOLAM 2 MG/2 ML VIAL IV (09:50)
[2023-01-14] MEDS: BUPIVACAINE 0.25% (PF) VIAL 2 ML INJ (09:54)
[2023-01-14] MEDS: IOPAMIDOL 15 ML VIAL 3 ML INJ (09:54)
[2023-01-14] MEDS: DEXAMETHASONE 10 MG/ML VIAL 30 MG INJ (09:55)
--- NOTE | 2023-01-14 10:09 | P.PCN_ITS ---
Date/Time/Diagnoses Date of procedure: 01/14/23 Time of procedure: 10:09 Pre-procedure diagnosis: 1. CERVICAL STENOSIS, 2. CERVICAL HNP WITH UPPER EXTREMITY RADICULAR FEATURES Post-procedure diagnosis: same Procedure Notes Procedure: 1. FLUORSCOPICALLY GUIDED CONTRAST CONTROLLED INTERLAMINAR EPIDURAL STEROID INJECTION - C6/7 TL SHONDA Indications: Nilsa is referred by Dr. Gardner for treatment of Cervical HNP with Upper Extremity Paresthesias. Physician: Aroldo Wright Total Fluoroscopy time (seconds): 30 Total sedation minutes: 13 Complications: none Procedure in detail & Post-procedure care: FINDINGS Cervical Stenosis due to disc deterioration and nerve root irritation and nerve root irritation DESCRIPTION OF PROCEDURE Fluoroscopically guided, contrast-controlled C6/7 translaminar epidural steroid injection with conscious sedation. Following review of allergy and review of potential side effects and complications, including, but not necessarily limited to, infection, allergic reaction, local tissue breakdown, temporary as well as permanent nerve injury, stroke, paralysis, and possible , the patient indicated that patient understood and agreed to proceed. An informed consent document was signed by the patient, witnessed by a nurse, and placed in the patient's chart. Additionally, other treatment options including modalities, medications, and physical therapy were reviewed with the patient. After review of previous anaesthesic history and IV conscious sedation the patient was deemed safe to proceed with today?s procedure with IV conscious sedation as ASA class II designation. Safety time-out was performed to confirm patient ID, procedure to be performed and site of procedure. IV sedation was accomplished with a combination of 2mg of Versed administered by the RN after DO order, titrated to patient comfort during the course of the procedure while the patient remained responsive to all verbal commands. In the prone position, following sterile prep and drape of the cervical region, the C6/7 translaminar space was identified fluoroscopically. The skin was anesthetized via a 25-gauge 1.5-inch needle with 1% lidocaine solution. At this point, a 25-gauge, 2.5-inch short bevel spinal needle was atraumatically introduced and advanced under fluoroscopic guidance into epidural space at the C6/7 translaminar space. Depth was confirmed on lateral view. Radiological data, including multiple fluoroscopic views of the cervical spine, reveal a spinal needle at the C6/7 translaminar space. Lateral views then show placement of the needle in the epidural space. Subsequent views show contrast material flowing superiorly and inferiorly in the epidural space. DSA fluoroscopy with live contrast injection, once again, confirmed no vascular or intrathecal uptake. At this point, using loss of resistance technique with saline and air, the epidural space was entered. Following negative aspiration, injection of approximately 1.5cc of Isovue-200 with live fluoroscopy in the AP view confirmed epidural flow in the epidural space without vascular or intrathecal uptake observed. Subsequently, a test dose of 1cc of 1% lidocaine solution was injected and patient was observed for two minutes without signs or symptoms of complications, including abdominal pain, shortness of breath, bilateral upper or lower extremity weakness, nausea and vomiting, prior to steroid injection. At this point, 3cc or 30mg of dexamethasone was then injected without incident. The patient tolerated the procedure well without signs or symptoms of complic ations prior to being transferred to the recovery area for further monitoring, The patient was then transferred to the recovery area where they were observed for an appropriate period of time after the injection. The patient reported a VAS score of 6 prior to the procedure and a post-procedure VAS of 0. POST OP INSTRUCTIONS The patient was provided a Pain Log to continue to record their response to the target-specific procedure prior to follow-up visit with the referring provider. Additionally, specific post-injection care instructions and a contact number to our office were provided if concerns arise regarding possible complications associated with the procedure are suspected.
== END 2023-01-14 10:25 | disposition home or self-care (01) ==
PROVIDERS: PCP Family Medicine; Referring Provider Physical Medicine & Rehabilitation; Visit Provider Physical Medicine & Rehabilitation
DX: M48.02 Spinal stenosis, cervical region (principal); M50.123 Cervical disc disorder at C6-C7 level with radiculopathy
CPT/HCPCS: 62321; 99152; J1100; J2250; J3490

== ENCOUNTER → 2024-07-24 16:25 | Outpatient (CLI) | payer OTHER, SELFPAY ==
--- NOTE | 2024-07-24 16:27 | DI.RAD.S_ITS ---
PROCEDURE: XR LUMBAR SPINE MIN 4V INDICATIONS: Progressive low back pain left lower extremity radicular TECHNIQUE: 5 views of the lumbar spine were acquired, including bilateral oblique views. COMPARISON: None. FINDINGS: Bones: 5 nonrib-bearing vertebrae are present. There is trace levoconvex curvature. No vertebral body compression fractures. No suspicious bony lesions. Minimal degenerative endplate changes and facet hypertrophy are seen in the lumbar spine. Soft tissues: Overlying bowel gas pattern is normal. No suspicious soft tissue calcifications. Oblique images: No pars defects. IMPRESSION: Minimal spondylosis. No acute osseous abnormality. MRI could be performed for further evaluation if indicated clinically. Approved by: Constantine Pulido M.D. on 07/25/2024 at 8:40
== END ==
PROVIDERS: PCP Family Medicine; Referring Provider Physical Medicine & Rehabilitation; Visit Provider Physical Medicine & Rehabilitation
DX: M47.26 Other spondylosis with radiculopathy, lumbar region (principal)
CPT/HCPCS: 72110

== ENCOUNTER 2024-12-12 14:05 | Outpatient (CLI) | payer OTHER, SELFPAY ==
[2024-12-12] VITALS (11 sets, daily range): BP systolic 107–143; BP diastolic 63–82; PULSE 62–84; RESP 12–17; TEMP 36.8; O2SAT 14–100
--- NOTE | 2024-12-12 14:07 | DI.RAD.S_ITS ---
PROCEDURE: PAIN L/SI FACET INJ/BLK 1STL INDICATIONS: Left L4-L5 and S1 medial branch blocks long-acting COMPARISON: None. FINDINGS/IMPRESSION: Fluoroscopic spot filming was performed to verify placement of spinal needles at the left L4, L5 and S1 medial branch level(s), as labeled on the films. Appropriate location(s) of the needle tip(s) was confirmed by injection of iodinated contrast. Dictated by: Sada Perdomo MD, PhD on 12/12/2024 at 15:47 Approved by: Sada Perdomo MD, PhD on 12/12/2024 at 15:48
[2024-12-12] MEDS: MIDAZOLAM 2 MG/2 ML VIAL IV (15:20)
[2024-12-12] MEDS: BUPIVACAINE 0.5% (PF) 10 ML VIAL 2 ML INJ (15:24)
[2024-12-12] MEDS: iopamidoL 15 ML VIAL 3 ML INJ (15:25)
--- NOTE | 2024-12-12 15:36 | P.PCN_ITS ---
Date/Time/Diagnoses Date of procedure: 12/12/24 Time of procedure: 15:36 Pre-procedure diagnosis: 1. FACET ARTHROPATHY Post-procedure diagnosis: same Procedure Notes Procedure: 1. Left L4, L5 and S1 MB BLOCKS LA Indications: Nilsa is referred by Dr. Gardner for treatment of Left Axial LBP. Physician: Aroldo Wright Total Fluoroscopy time (seconds): 8 Total sedation minutes: 11 Complications: none Procedure in detail & Post-procedure care: DESCRIPTION OF PROCEDURE Fluoroscopically guided, contrast-controlled left L4, L5 and S1 medial branch blocks with 0.5cc of 0.5% Marcaine. Following review of allergy and review of potential side effects and complications, including, but not necessarily limited to, infection, allergic reaction, local tissue breakdown, nerve injury, paralysis, stroke and possible , the patient indicated that the patient understood and agreed to proceed. An informed consent document was signed by the patient, witnessed by a nurse, and placed in the patient's chart. After review of previous anaesthesic history and IV conscious sedation the patient was deemed safe to proceed with today?s procedure with IV conscious sedation as ASA class II designation. Safety time-out was performed to confirm patient ID, procedure to be performed and site of procedure. IV sedation was accomplished with a combination of 2mg of Versed was administered by the RN after DO order, titrated to patient comfort during the course of the procedure while the patient remained responsive to all verbal commands. In the prone position, following sterile prep and drape of the lumbar region, the left L4, L5 and S1 anatomical location of the medial branch of the dorsal ramus was identified fluoroscopically. Subsequently an anesthetic skin wheal using 1% lidocaine solution was initiated at each of the anatomical spots. Subsequently then a 22-gauge 3.5-inch spinal needle was atraumatically introduced and advanced under fluoroscopic guidance at each of the corresponding sites at the left L4, L5 and S1 MB. After negative aspiration, 0.2cc of Isovue 200 was injected, confirming placement without vascular or intrathecal uptake. Subsequently then 0.5cc of 0.5% Marcaine solution was injected at each of the corresponding sites at the left L4, L5 and S1 medial branch locations. The patient tolerated the procedure well without signs or symptoms of complications. The patient tolerated the procedure well without signs or symptoms of complications prior to transfer to the recovery area continued monitoring without incident. Post-procedure, the patient was monitored initiating provocative activities to measure the amount of relief from block of the facetogenic pain. The patient reported a VAS of 7 prior to the procedure and a post-procedure VAS of 1. It has been a pleasure to assist in the diagnostic and therapeutic care of your patient. POST OP INSTRUCTIONS The patient was provided with a Pain Log to complete over the next several hours and subsequent days prior to the patient's follow up with the ordering physician. 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 The patient is aware, was provided, once again, with a Pain Log and will follow up with the referring physician for review and clinical correlation.
--- NOTE | 2024-12-12 16:08 | P.PCN_ITS ---
Date/Time/Diagnoses Date of procedure: 12/12/24 Time of procedure: 16:08 Pre-procedure diagnosis: 1. FORAMINAL STENOSIS WITH LE SYMPTOMS Procedure Notes Procedure: 1. FLUOROSCOPICALLY GUIDED CONTRAST CONTROLLED TRANSFORAMINAL EPIDURAL STEROID INJECTION - BILATERAL L4/5 TFESI Indications: Nilsa is referred by for treatment of Foraminal Stenosis with bilateral LE Symptoms Physician: Aroldo Wright Total Fluoroscopy time (seconds): 15 Total sedation minutes: 15 Complications: none Procedure in detail & Post-procedure care: FINDINGS Foraminal Nerve Root Compression secondary to disc disease and facet hypertrophy DESCRIPTION OF PROCEDURE Following review of allergy and review of potential side effects and complications, including, but not necessarily limited to, infection, allergic reaction, local tissue breakdown, stroke, temporary or permanent nerve injury, paralysis, and possible , the patient indicated that the patient understood and agreed to proceed. An informed consent document was signed by the patient, witnessed by a nurse, and placed in the patient's chart. Additionally, other treatment options including medications, modalities, and physical therapy were reviewed with the patient. After review of previous anaesthesic history and IV conscious sedation the patient was deemed safe to proceed with today?s procedure with IV conscious sedation as ASA class II designation. Safety time-out was performed to confirm patient ID, procedure to be performed and site of procedure. IV sedation was accomplished with a combination of 2mg of Versed and 50mcg of Fentanyl was administered by the RN after DO order, titrated to patient comfort during the course of the procedure while the patient remained responsive to all verbal commands In the prone position following sterile prep and drape of the lumbar region, the right L4/5 posterior neuroforamen was identified fluoroscopically. The skin was anesthetized via a 25-gauge 1.5-inch needle with 1% lidocaine solution. At this point, a 25-gauge 3.5-inch spinal needle was atraumatically introduced and advanced under fluoroscopic guidance through the posterior right L4/5 neuroforamen to approximately the anterior aspect of the canal. Depth was confirmed on lateral view. Following negative aspiration, injection of approximately 1.5cc of Isovue 200 under live fluoroscopy in the AP view confirmed excellent flow along the nerve root, into the epidural space without vascular or intrathecal uptake observed Radiological data, including multiple fluoroscopic views of the lumbosacral spine, reveal a spinal needle at the right L4/5 posterior neuroforamen. Subsequent views show flow of contrast material flowing superiorly and inferiorly along the nerve root confirming epidural flow. Subsequently, a test dose of 1.5cc of 1% lidocaine solution was administered and patient was observed for two minutes for signs or symptoms of complications, including abdominal pain, shortness of breath, bilateral upper or lower extremity weakness, nausea and vomiting, prior to steroid injection. At this point, a total of 2cc or 10mg of dexamethasone and 6mg betamethasone was injected without incident. Attention was then refocused to the left L4/5 level where the identical procedure was replicated. The procedure tolerated the procedure well without signs or symptoms of complications prior to transfer to the recovery area continued monitoring without incident. The patient was then transferred to the recovery area where they were observed for an appropriate time after the injection. The patient reported a VAS score of 7 prior to the procedure and a post-procedure VAS of 0. POST OP INSTRUCTIONS The patient was provided a Pain Log to continue to record their response to the target-specific procedure prior to follow-up visit with their referring ph ysician. Additionally, specific post-injection care instructions and a contact number to our office were provided if concerns arise regarding possible complications associated with the procedure are suspected.
== END 2024-12-12 16:25 | disposition home or self-care (01) ==
PROVIDERS: PCP Family Medicine; Referring Provider Physical Medicine & Rehabilitation; Visit Provider Physical Medicine & Rehabilitation
DX: M47.816 Spondylosis without myelopathy or radiculopathy, lumbar region (principal); M47.817 Spondylosis without myelopathy or radiculopathy, lumbosacral region
CPT/HCPCS: 64493; 64494; 99152; J2250

== ENCOUNTER → 2025-01-16 16:48 | Outpatient (CLI) | payer OTHER, SELFPAY ==
--- NOTE | 2025-01-16 16:50 | DI.MRI.S_ITS ---
PROCEDURE: MR LUMBAR SPINE WO CON INDICATIONS: low back pain TECHNIQUE: Noncontrast sagittal T1 spin echo and T2 fast echo, sagittal STIR, and T2 fast spin echo through the lumbar spine. In cases with scoliosis, additional coronal T2 fast spin echo may be performed. COMPARISON: None. FINDINGS: Image quality: Excellent. Alignment and Curvature: There is normal bony alignment. Bone Marrow: Marrow is of normal overall signal. No acute vertebral body compression fractures. Spinal Cord: Conus medullaris terminates at the L1 level. Visualized cord demonstrates normal signal and size. Paraspinous Soft Tissues: No paravertebral masses. T12-L1: Normal appearance. L1-L2: Normal appearance. L2-L3: Normal appearance. L3-L4: Normal appearance. L4-L5: Normal appearance. L5-S1: Broad-based disc bulge effaces the left lateral recess no central stenosis. Moderate left and no right foraminal stenosis IMPRESSION: Degenerative disc disease at L5-S1 effaces the left lateral recess results in moderate left foraminal stenosis Approved by: Joseph Rueda M.D. on 01/17/2025 at 18:07
== END ==
LOC: MRI 16:48
PROVIDERS: PCP Family Medicine; Referring Provider Physical Medicine & Rehabilitation; Visit Provider Physical Medicine & Rehabilitation
DX: M47.26 Other spondylosis with radiculopathy, lumbar region (principal); M51.17 Intervertebral disc disorders with radiculopathy, lumbosacral region; M48.07 Spinal stenosis, lumbosacral region
CPT/HCPCS: 72148

== ENCOUNTER 2025-01-25 07:47 | Outpatient (CLI) | payer OTHER, SELFPAY ==
[2025-01-25] VITALS (9 sets, daily range): BP systolic 111–142; BP diastolic 68–96; PULSE 61–80; RESP 16–19; TEMP 36.6; O2SAT 96–100
--- NOTE | 2025-01-25 07:49 | DI.RAD.S_ITS ---
PROCEDURE: PAIN L/SI FACET INJ/BLK 1STL INDICATIONS: Left L4-L5 and S1 medial branch block SA COMPARISON: [facility], XA, PAIN L/SI FACET INJ/BLK 1STL, 12/12/2024, 15:24. FINDINGS/IMPRESSION: Fluoroscopic spot filming was performed to verify placement of spinal needles at the left L4, L5 and S1 level(s), as labeled on the films. Appropriate location(s) of the needle tip(s) was confirmed by injection of iodinated contrast. Dictated by: Sada Perdomo MD, PhD on 01/25/2025 at 11:49 Approved by: Sada Perdomo MD, PhD on 01/25/2025 at 11:49
[2025-01-25] MEDS: MIDAZOLAM 2 MG/2 ML VIAL IV (08:20)
[2025-01-25] MEDS: iopamidoL 15 ML VIAL 3 ML INJ (08:26)
[2025-01-25] MEDS: LIDOCAINE 2% INJ SDV 5ML 1 ML INJ (08:26)
--- NOTE | 2025-01-25 08:44 | PM.PROC.IR.1 ---
Date/Time/Diagnoses Date of procedure: 01/25/25 Time of procedure: 08:44 Pre-procedure diagnosis: FACET ARTHROPATHY Post-procedure diagnosis: same Procedure Notes Procedure: 1. Left L4, L5 and S1 MB BLOCKS SA Indications: Nilsa is referred by Dr. Gardner for treatment of Left Axial LBP. Physician: Aroldo Wright Total Fluoroscopy time (seconds): 11 Total sedation minutes: 17 Complications: none Procedure in detail & Post-procedure care: DESCRIPTION OF PROCEDURE Fluoroscopically guided, contrast-controlled left L4, L5 and S1 medial branch blocks with 0.5cc of 2% Lidocaine. Following review of allergy and review of potential side effects and complications, including, but not necessarily limited to, infection, allergic reaction, local tissue breakdown, nerve injury, paralysis, stroke and possible , the patient indicated that the patient understood and agreed to proceed. An informed consent document was signed by the patient, witnessed by a nurse, and placed in the patient's chart. After review of previous anaesthesic history and IV conscious sedation the patient was deemed safe to proceed with today?s procedure with IV conscious sedation as ASA class II designation. Safety time-out was performed to confirm patient ID, procedure to be performed and site of procedure. IV sedation was accomplished with a combination of 2mg of Versed was administered by the RN after DO order, titrated to patient comfort during the course of the procedure while the patient remained responsive to all verbal commands. In the prone position, following sterile prep and drape of the lumbar region, the left L4, L5 and S1 anatomical location of the medial branch of the dorsal ramus was identified fluoroscopically. Subsequently an anesthetic skin wheal using 1% lidocaine solution was initiated at each of the anatomical spots. Subsequently then a 22-gauge 3.5-inch spinal needle was atraumatically introduced and advanced under fluoroscopic guidance at each of the corresponding sites at the left L4, L5 and S1 MB. After negative aspiration, 0.2cc of Isovue 200 was injected, confirming placement without vascular or intrathecal uptake. Subsequently then 0.5cc of 2% Lidocaine solution was injected at each of the corresponding sites at the left L4, L5 and S1 medial branch locations. The patient tolerated the procedure well without signs or symptoms of complications. The patient tolerated the procedure well without signs or symptoms of complications prior to transfer to the recovery area continued monitoring without incident. Post-procedure, the patient was monitored initiating provocative activities to measure the amount of relief from block of the facetogenic pain. The patient reported a VAS of 7 prior to the procedure and a post-procedure VAS of 1. It has been a pleasure to assist in the diagnostic and therapeutic care of your patient. POST OP INSTRUCTIONS The patient was provided with a Pain Log to complete over the next several hours and subsequent days prior to the patient's follow up with the ordering physician. If the patient has structural layout worker relief to the solution applied, then they may be a candidate for medial branch rhizotomy. The patient is aware, was provided, once again, with a Pain Log and will follow up with the referring physician for review and clinical correlation.
== END 2025-01-25 09:00 | disposition home or self-care (01) ==
PROVIDERS: PCP Family Medicine; Referring Provider Physical Medicine & Rehabilitation; Visit Provider Physical Medicine & Rehabilitation
DX: M47.816 Spondylosis without myelopathy or radiculopathy, lumbar region (principal); M47.817 Spondylosis without myelopathy or radiculopathy, lumbosacral region
CPT/HCPCS: 64493; 64494; 99152; J2250

== ENCOUNTER 2025-03-13 07:29 | Outpatient (CLI) | payer OTHER, SELFPAY ==
[2025-03-13] VITALS (11 sets, daily range): BP systolic 100–121; BP diastolic 64–78; PULSE 62–80; RESP 16–18; TEMP 36.9; O2SAT 97–100
[2025-03-13] MEDS: MIDAZOLAM 2 MG/2 ML VIAL IV (08:25)
[2025-03-13] MEDS: BUPIVACAINE 0.5% (PF) 10 ML VIAL 5 ML INJ (08:32)
[2025-03-13] MEDS: LIDOCAINE 1% 20 ML 5 ML INJ (08:32)
--- NOTE | 2025-03-13 08:57 | P.PCN_ITS ---
Date/Time/Diagnoses Date of procedure: 03/13/25 Time of procedure: 08:58 Pre-procedure diagnosis: 1. RECALCITRANT FACET ARTHROPATHY Post-procedure diagnosis: same Procedure Notes Procedure: 1. LEFT L4 AND L5 MEDIAL BRANCH RADIOFREQUENCY NEUROTOMY AND LEFT S1 DORSAL RAMUS RADIOFREQUENCY NEUROTOMY, Indications: Nilsa is referred by Dr. Gardner for treatment of facet arthropathy. Physician: Aroldo Wright Total Fluoroscopy time (seconds): 10 Total sedation minutes: 28 Complications: none Procedure in detail & Post-procedure care: DESCRIPTION OF PROCEDURE Left L4 and L5 medial branch radiofrequency neurotomy and left S1 dorsal ramus branch radiofrequency neurotomy under fluoroscopy with conscious sedation. The patient is well known to this clinic having undergone previous facet injections with good but temporary relief. The patient has experienced appropriate, concordant relief with previous facet and median branch blocks but the patient's pain has been recalcitrant to further conservative measures. Therefore, based upon the patient's relief and persistent symptoms, the patient is considered an appropriate candidate for facet rhizotomy. All of the patient's questions regarding the risks versus benefits of the procedure, including, but not limited to, bleeding, infection, temporary as well as lasting nerve injury, paralysis, stroke, and , as well treatment alternatives were answered to satisfaction. After obtaining informed consent, denial of pertinent drug allergies, as well as being made aware of the potential risks of bleeding, infection, spinal cord trauma, paralysis, temporary and permanent nerve damage, seizure, stroke, and possible , the patient was brought to the fluoroscopy suite and positioned prone on the fluoroscopy table. The lumbar region was prepped with Betadine and covered with a fenestrated drape in the usual sterile fashion. Appropriate monitors applied including pulse oximeter, pulse, and blood pressure for regular monitoring throughout the procedure. IV sedation was accomplished with a combination of 2mg of Versed titrated to patient comfort during the course of the procedure while the patient remained responsive to all verbal commands. After local infiltration using 1% lidocaine, under fluoroscopic guidance, a 10- cm RF insulated needle with a 10-mm active tip was positioned parallel to the junction of the left sacral ala and the superior articulating process where the S1 dorsal ramus resides. Needle placement was confirmed with sensory stimulation at 50 Hz, with motor stimulation of .5v on the left which produced local stimulation without radicular component. The stimulation was then increased to 2v with, once again, only local multifidus stimulation without radicular component. This was then followed by two discreet lesions performed at 80 degrees Celsius for 90 seconds each. The needle was then removed and the identical procedure was performed along the length of the left L5 medial branch with motor stimulation at .7v on the left. The identical procedure was once again performed along the length of the left L4 medial branch with motor stimulation of .5v on the left. The patient tolerated the procedure well without signs or symptoms of complications prior to transfer to the recovery area continued monitoring without incident. The patient was then transferred to the recovery area where they were observed for an appropriate period of time after the injection. The patient was then transferred to the recovery area where they were observed for an appropriate period of time after the injection. The patient reported a VAS score of 9 prior to the procedure and a post- procedure VAS of 0. POST OP INSTRUCTIONS The patient was provided a Pain Log to continue to record the patient's response to the target-specific procedure prior to the patient's follow-up visit with the referring physician. Additionally, specific post-injection care instructions and a contact number to our office were provided if concerns arise regarding possible complications associated with the procedure are suspected.
== END 2025-03-13 09:16 | disposition home or self-care (01) ==
PROVIDERS: PCP Family Medicine; Referring Provider Physical Medicine & Rehabilitation; Visit Provider Physical Medicine & Rehabilitation
DX: M47.816 Spondylosis without myelopathy or radiculopathy, lumbar region (principal); M47.817 Spondylosis without myelopathy or radiculopathy, lumbosacral region
CPT/HCPCS: 64635; 64636; 99152; 99153; J2250

== ENCOUNTER → 2025-03-19 17:00 | Outpatient (CLI) | payer OTHER, SELFPAY ==
--- NOTE | 2025-03-19 17:01 | DI.MG.S_ITS ---
MM screening mammo implant BI: 03/19/2025. BI-RADS: 2 CLINICAL: 49-year old female for bilateral screening mammogram. Tyrer-Cuzick lifetime risk of 8.6%. No personal or first-degree family history of breast cancer. The patient has bilateral implants. PRIOR EXAMS 02/24/2022. MAMMOGRAPHY TECHNIQUE: 2D and 3D (tomosynthesis) digital mammographic views obtained, with additional images as needed for full coverage. Current study was also evaluated with a Computer Aided Detection (CAD) system. DENSITY C. The breasts are heterogeneously dense, which may obscure small masses. IMPLANTS Breast implants present. MAMMOGRAPHY FINDINGS Bilateral: There are no suspicious masses, calcifications, or other findings in the breast. No significant change from comparison. IMPRESSION: * No evidence of malignancy with benign findings. RECOMMENDATIONS Bilateral * Annual screening mammography. OVERALL ASSESSMENT CATEGORY BI-RADS-2: Benign. The [employer] recommends annual screening mammography beginning at age 40 for women with average risk of breast cancer. ELECTRONICALLY SIGNED: Batsheva Cooper M.D. on 03/21/2025 at 10:53:10 AM PT Interpreting Station ID: [id number]
== END ==
PROVIDERS: PCP Family Medicine; Referring Provider Family Medicine; Visit Provider Family Medicine
DX: Z12.31 Encounter for screening mammogram for malignant neoplasm of breast (principal); Z98.82 Breast implant status; R92.333 Mammographic heterogeneous density, bilateral breasts
CPT/HCPCS: 77063; 77067